=== PATIENT | male | born 1990 | race Caucasian/White ===

== ENCOUNTER 2017-10-30 20:21 | Emergency (ER) | payer BC, OTHER ==
[2017-10-30 20:33] VITALS: BP 142/84; PULSE 82; RESP 18; TEMP 98.7
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
--- NOTE | 2017-10-30 21:11 | XR ---
EXAMINATION TYPE: XR ankle complete LT DATE OF EXAM: 10/30/2017 COMPARISON: NONE HISTORY: Ankle pain TECHNIQUE: 3 views FINDINGS: There is a small Achilles calcaneal spur. Ankle mortise is anatomic. I see no fracture nor dislocation. IMPRESSION: No acute abnormality of the left ankle.
--- NOTE | 2017-10-30 21:14 | XR ---
EXAMINATION TYPE: XR foot complete LT DATE OF EXAM: 10/30/2017 COMPARISON: NONE HISTORY: Foot pain TECHNIQUE: 3 views FINDINGS: Metatarsals are intact. I see no fracture nor dislocation. I see no bony destructive proces s. Joint spaces appear normal. IMPRESSION: Negative left foot exam.
== END 2017-10-30 21:38 | disposition home or self-care (01) ==
LOC: EC 20:21
DX: S93.402A Sprain of unspecified ligament of left ankle, initial encounter (principal); S50.812A Abrasion of left forearm, initial encounter; S80.212A Abrasion, left knee, initial encounter; S90.812A Abrasion, left foot, initial encounter; F17.200 Nicotine dependence, unspecified, uncomplicated; Z88.0 Allergy status to penicillin; Z88.5 Allergy status to narcotic agent; V27.4XXA Motorcycle driver injured in collision with fixed or stationary object in traffic accident, initial encounter; Y93.55 Activity, bike riding
CPT/HCPCS: 99283